=== PATIENT | female | born 1950 | race Caucasian/White ===

== ENCOUNTER → 2019-10-16 15:02 | Outpatient (CLI) | payer MEDICARE, SELFPAY ==
[2019-10-16 16:04] LABS: Erythrocyte Sedimentation Rate 30 MM/HR (0-20)
== END ==
PROVIDERS: PCP Family Medicine; Referring Provider Family Medicine; Visit Provider Family Medicine
DX: M35.3 Polymyalgia rheumatica (principal)
CPT/HCPCS: 36415; 85651